=== PATIENT | female | born 1950 | race Caucasian/White ===

== ENCOUNTER 2022-03-30 08:18 | Day surgery (SDC) | payer MEDICARE, OTHER ==
[2022-03-26 15:54] LABS: BASOPHILS % (AUTO) 0.8 % (0-1); EOSINOPHILS # (AUTO) 0.1 X10'3 (0-0.9); EOSINOPHILS % (AUTO) 2.8 % (0-6); LYMPHOCYTES # (AUTO) 1.7 X10'3 (1.1-4.8); LYMPHOCYTES % (AUTO) 33.9 % (21-51); MEAN CORPUSCULAR HEMOGLOBIN 27.7 PG (27.0-31.0); MEAN CORPUSCULAR HGB CONC 33.3 g/dL (33.0-36.5); MEAN CORPUSCULAR VOLUME 83.4 FL (78-98); MEAN PLATELET VOLUME 7.5 FL (7.4-10.4); MONOCYTES # (AUTO) 0.5 X10'3 (0-0.9); MONOCYTES % (AUTO) 10.8 % (2-12); NEUTROPHILS # (AUTO) 2.5 X10'3 (1.8-7.7); NEUTROPHILS % (AUTO) 51.7 % (42-75); PRE OP HEMATOCRIT 36.1 % (35.0-45.0); PRE OP PLATELET COUNT 240 X10'3 (140-440); RED BLOOD COUNT 4.33 X10'6 (4.20-5.60); RED CELL DISTRIBUTION WIDTH 14.2 % (11.5-14.5)
[2022-03-26 16:07] LABS: ALBUMIN 3.5 G/DL (3.4-5.0); ALKALINE PHOSPHATASE 92 IU/L (46-116); BLOOD UREA NITROGEN 17 MG/DL (7-18); BUN/CREATININE RATIO 19.5 (6.6-38.0); CALCIUM 9.2 MG/DL (8.5-10.1); CHLORIDE 104 MMOL/L (99-107); CREATININE 0.87 MG/DL (0.40-0.90); PRE OP ALT 25 U/L (30-65); PRE OP ANION GAP 8 (8-16); PRE OP AST 19 U/L (10-37); PRE OP BILIRUB, TOTAL 0.2 MG/DL (0.0-1.0); PRE OP GLUCOSE 100 MG/DL (70-104); PRE OP POTASSIUM 4.4 MMOL/L (3.4-5.1); PRE OP SODIUM 142 MMOL/L (135-145); TOTAL CARBON DIOXIDE 30.2 MMOL/L (24-32); TOTAL PROTEIN 7.1 G/DL (6.4-8.2); eGFR 65 ML/MIN
[2022-03-30] VITALS (8 sets, daily range): BP systolic 114–144; BP diastolic 58–82
[~2022-03-30] VITALS: Ht 165.1 cm; Wt 84.4 kg
[~2022-03-30 08:18] MED LIST: BUPR-317 PO; CITA40TA17 PO; ceFAZolin inj. 2,000 MG in dextrose 5%-water 100 ML IV ONE; famotidine 20mg tablet PO ONE; ringers solution, lacted 1,000 ML IV SCH
[2022-03-30] MEDS ORDERED: BUPIVAcaine/PF 2.5 mg/ml (0.25%) 30ml vial ONE (10:28)
[2022-03-30] MEDS ORDERED: ALPR-624 PO (11:00)
[2022-03-30] MEDS ORDERED: sevoflurane 250ml liquid IH ONE (11:20)
[2022-03-30] MEDS ORDERED: dexamethasone sod phosphate 10mg/ml inj ONE (11:20)
[2022-03-30] MEDS ORDERED: fentaNYL/PF 50MCG/1 ML 2ML syringe ONE (11:21)
[2022-03-30] MEDS ORDERED: midazolam 1 mg/ML 2ml injection ONE (11:24)
[2022-03-30] MEDS ORDERED: propofol inj 20 ML IV ONE (11:26)
[2022-03-30] MEDS ORDERED: ROPIVAcaine 0.5% (5mg/ml) 30ml vial ONE (11:26)
[2022-03-30] MEDS ORDERED: LIDOcaine 2% (20mg/ml) 5ml vial ONE (11:26)
[2022-03-30] MEDS ORDERED: ondansetron/PF 4mg/2ml inj ONE (11:48)
[2022-03-30] MEDS ORDERED: ROPIVAcaine 0.2%/PF PUMP/bolus 545 ML INTERSCALE SCH (12:15)
[2022-03-30] MEDS ORDERED: ringers solution, lacted 1,000 ML IV SCH (12:15)
[2022-03-30] MEDS ORDERED: fentaNYL/PF 50MCG/1 ML 2ML syringe IV PRN ×2 (12:15)
[2022-03-30] MEDS ORDERED: hydrALAZINE 20mg/ml inj. IV PRN (12:15)
[2022-03-30] MEDS ORDERED: labetalol 20mg/4ml (5mg/ml) syringe IV PRN (12:15)
[2022-03-30] MEDS ORDERED: morphine 2 MG/ML inj. syringe IV PRN (12:15)
[2022-03-30] MEDS ORDERED: ondansetron/PF 4mg/2ml inj IV PRN (12:15)
[2022-03-30] MEDS ORDERED: ROPIVAcaine 0.2% (10 MG/5 ML) BOLUS INJECTION INTERSCALE PRN (12:15)
[2022-03-30] MEDS ORDERED: morphine 4 MG/ML inj SYRINge IV PRN (12:15)
[2022-03-30] MEDS ORDERED: HYDROcodone/acetaminophen 10/325mg tab PO PRN (12:45)
--- NOTE | 2022-03-30 12:50 | NUR ---
Received from OR via BED, accompanied by Anesthesiologist and report given by Anesthesiologist. PATIENT WAKING UP, NO S/S OF PAIN, V/S WNL, SCD ON, 20G TO ALISTAIR BAEZg to shoulder -CDI with SLING, NEUROVASCULAR CHECKS INTACT.
--- NOTE | 2022-03-30 13:50 | NUR ---
PATIENT A&OX4, DENIES PAIN, V/S WNL, SCD OFF, 20G TO LUE D/C, ALISTAIR drsg to shoulder -CDI with SLING, NEUROVASCULAR CHECKS INTACT. . I HAVE REVIEWED D/C INSTRUCTIONS AND ONQ BALL INSTRUCTION AND GAVE HANDOUTS TO PATIENTAND FAMILY and they have verbalized understanding patient d/c home with all belongings and family gave transport home.
[2022-03-31] MEDS ORDERED: buproprion 150mg XL (24-hour) tablet PO SCH (08:00)
[2022-03-31] MEDS ORDERED: citalopram 20mg tablet PO SCH (08:00)
== END 2022-03-30 13:50 | disposition home or self-care (01) ==
LOC: PAS 08:18
PROVIDERS: ATTEND Orthopaedic Surgery
DX: M75.41 Impingement syndrome of right shoulder (principal); M19.011 Primary osteoarthritis, right shoulder; M75.51 Bursitis of right shoulder; M25.611 Stiffness of right shoulder, not elsewhere classified; F41.8 Other specified anxiety disorders; Z98.890 Other specified postprocedural states; Z79.899 Other long term (current) drug therapy; G89.18 Other acute postprocedural pain
CPT/HCPCS: 29822; 29826; 36415; 64415; 76942; 80053; 82948; 85025; 93005; J0690; J1100; J2250; J2405; J2704; J2795; J3010; J3490; J7060; J7120; Z7506; Z7508; Z7512; A4565; A4618; A6449; A7000

== ENCOUNTER 2023-03-09 01:09 | Emergency (ER) | payer MEDICARE, OTHER ==
[~2023-03-09] VITALS: Ht 165.1 cm; Wt 79.5 kg
[~2023-03-09 01:09] MED LIST changes: +ALPR-624 PO; -ceFAZolin inj. 2,000 MG in dextrose 5%-water 100 ML IV ONE; -famotidine 20mg tablet PO ONE; -ringers solution, lacted 1,000 ML IV SCH
[2023-03-09 01:20] VITALS: BP 132/84; PULSE 98; RESP 14; TEMP 98.9; O2SAT 95
[2023-03-09] MEDS ORDERED: dexamethasone sod phosphate 10mg/ml inj IM STA (01:36)
[2023-03-09] MEDS ORDERED: acetaminophen 325mg tablet PO STA (01:36)
[2023-03-09] MEDS ORDERED: ketorolac trometh. 30mg/ml inj. IM STA (01:36)
[2023-03-09] MEDS ORDERED: iohexol 300mg/ml 100ml inj. ONE (02:31)
[2023-03-09 02:41] LABS: ALBUMIN 3.1 G/DL (3.4-5.0); ANION GAP 4 (8-16); BLOOD UREA NITROGEN 11 MG/DL (7-18); BUN/CREATININE RATIO 12.8 (10.0-20.0); CALCIUM 8.7 MG/DL (8.5-10.1); CHLORIDE 104 MMOL/L (99-107); CREATININE 0.86 MG/DL (0.40-0.90); GLUCOSE 112 MG/DL (70-104); POTASSIUM 3.7 MMOL/L (3.5-5.1); SODIUM 139 MMOL/L (135-145); TOTAL CARBON DIOXIDE 30.7 MMOL/L (24-32); eCRCL 55 ML/MIN; eGFR 65 ML/MIN
--- NOTE | 2023-03-09 05:06 | NUR ---
IV DC'D PT BEING DISCHARGED DRESSING APPLIED
== END 2023-03-09 05:08 | disposition home or self-care (01) ==
LOC: ER 01:09
DX: U07.1 COVID-19 (principal); J02.9 Acute pharyngitis, unspecified; Z79.899 Other long term (current) drug therapy
CPT/HCPCS: 36415; 70360; 70491; 80048; 96372; 99285; J1100; J1885; J3490; Q9967

== ENCOUNTER 2024-02-10 15:07 | Outpatient (CLI) | payer MEDICARE, OTHER ==
[~2024-02-10 15:07] MED LIST changes: -BUPR-317 PO; +BUPR-561 PO
== END 2024-02-10 23:59 | disposition home or self-care (01) ==
LOC: MRI02 15:07
PROVIDERS: ATTEND Orthopaedic Surgery
DX: M75.110 Incomplete rotator cuff tear or rupture of unspecified shoulder, not specified as traumatic (principal); M19.011 Primary osteoarthritis, right shoulder; M25.511 Pain in right shoulder
CPT/HCPCS: 73221

== ENCOUNTER 2024-06-24 09:34 | Emergency (ER) | payer MEDICARE, OTHER ==
[~2024-06-24] VITALS: Ht 165.1 cm; Wt 73.7 kg
[2024-06-24 09:47] VITALS: RESP 14
[2024-06-24 11:41] VITALS: BP 128/88; PULSE 78; TEMP 98.2; O2SAT 99
== END 2024-06-24 11:45 | disposition home or self-care (01) ==
LOC: ER 09:35
DX: R07.89 Other chest pain (principal); Z88.8 Allergy status to other drugs, medicaments and biological substances; Z79.899 Other long term (current) drug therapy
CPT/HCPCS: 71101; 99283